=== PATIENT | female | born 1980 | race Caucasian/White ===

== ENCOUNTER 2021-10-15 12:09 | Inpatient (IN) | payer OTHER ==
[2021-10-15] MEDS ORDERED: MENTHOL/PHENOL 1 EACH UD MM PRN (12:34)
[2021-10-15] MEDS ORDERED: IBUPROFEN 400 MG TABLET (FP) PO PRN (12:34)
[2021-10-15] MEDS ORDERED: BISMUTH SUBSALICYLATE 262 MG/15 ML BTL PO PRN (12:34)
[2021-10-15] MEDS ORDERED: NICOTINE 10 MG CARTRIDGE (INHALER) IH PRN (12:34)
[2021-10-15] MEDS ORDERED: ONDANSETRON *ODT* 4 MG TABLET SL PRN (12:34)
[2021-10-15] MEDS ORDERED: ACETAMINOPHEN 325 MG TABLET (FP) PO PRN ×2 (12:34)
[2021-10-15] MEDS ORDERED: MAGNESIUM CITRATE 300 ML BOTTLE PO PRN (12:34)
[2021-10-15] MEDS ORDERED: MAGNESIUM HYDROX 2400MG/30ML ORAL SUSPENSION 30 ML CUP PO PRN (12:34)
[2021-10-15] MEDS ORDERED: METHOCARBAMOL 500 MG TABLET PO PRN (12:34)
[2021-10-15 12:42] VITALS: BMI 20.2
[2021-10-15] MEDS: PRENATAL VITAMINS W/ FOLIC ACID TABLET (FP) PO SCH (15:28)
[2021-10-15] MEDS: NICOTINE 14 MG/24 HOURS TOPICAL PATCH TD SCH (15:28)
[2021-10-15] MEDS: hydrOXYzine PAMOATE 25 MG CAPSULE (FP) PO SCH ×3 (15:29→22:53)
[2021-10-15] MEDS: ALBUTEROL SO4 HFA INHALER IH SCH ×2 (15:29→22:53)
[2021-10-15 18:01] LABS: BLOOD UREA NITROGEN 15.4 mg/dL (7-18); CALCIUM 8.8 mg/dL (8.5-10.1)
[2021-10-15 18:02] LABS: ALBUMIN 3.4 g/dl (3.4-5.0)
[2021-10-15 18:06] LABS: BILIRUBIN,TOTAL 0.3 mg/dL (0.2-1); TOT PROT 6.9 g/dl (6.4-8.2)
[2021-10-15 18:07] LABS: HEMATOCRIT 30.8 % (32.4-45.2); HEMOGLOBIN 9.9 GM/dL (10.7-15.3); MCH 25.2 pg (25.7-33.7); MCHC 32.1 g/dl (32.0-36.0); MEAN CELL VOLUME 78.5 fl (80-96); MEAN PLT VOLUME 7.6 fl (7.5-11.1); PLATELET COUNT 332 10^3/uL (134-434); RBC 3.92 M/mm3 (3.60-5.2); RDW 14.9 % (11.6-15.6); WHITE BLOOD COUNT 3.7 K/mm3 (4.0-10.0)
[2021-10-15] MEDS: THIAMINE HCL 100 MG TABLET (FP) PO SCH (22:53)
[2021-10-15] MEDS: MELATONIN 5 MG TABLETS PO SCH (22:53)
[2021-10-16] MEDS: hydrOXYzine PAMOATE 25 MG CAPSULE (FP) PO SCH ×3 (07:04→14:56)
[2021-10-16] MEDS: ALBUTEROL SO4 HFA INHALER IH SCH ×3 (07:04→21:08)
[2021-10-16] MEDS: PRENATAL VITAMINS W/ FOLIC ACID TABLET (FP) PO SCH (10:13)
[2021-10-16] MEDS: NICOTINE 14 MG/24 HOURS TOPICAL PATCH TD SCH (10:14)
[2021-10-16] MEDS ORDERED: hydrOXYzine PAMOATE 25 MG CAPSULE (FP) PO PRN (15:29)
[2021-10-16] MEDS: MELATONIN 5 MG TABLETS PO SCH (21:07)
[2021-10-16] MEDS: THIAMINE HCL 100 MG TABLET (FP) PO SCH (21:07)
[2021-10-17] MEDS: ALBUTEROL SO4 HFA INHALER IH SCH (06:27)
[2021-10-17] MEDS: PRENATAL VITAMINS W/ FOLIC ACID TABLET (FP) PO SCH (10:25)
[2021-10-17] MEDS: NICOTINE 14 MG/24 HOURS TOPICAL PATCH TD SCH (10:25)
[2021-10-17] MEDS: SERTRALINE HCL 50 MG TABLET (FP) PO SCH (11:44)
[2021-10-17] MEDS: QUEtiapine FUMARATE 50 MG TABLET PO SCH ×2 (11:44→21:23)
[2021-10-17] MEDS: MELATONIN 5 MG TABLETS PO SCH (21:22)
[2021-10-17] MEDS: THIAMINE HCL 100 MG TABLET (FP) PO SCH (21:23)
[2021-10-18] MEDS: ALBUTEROL SO4 HFA INHALER IH PRN (06:38)
[2021-10-18] MEDS: QUEtiapine FUMARATE 50 MG TABLET PO SCH ×2 (10:11→21:03)
[2021-10-18] MEDS: NICOTINE 14 MG/24 HOURS TOPICAL PATCH TD SCH (10:11)
[2021-10-18] MEDS: SERTRALINE HCL 50 MG TABLET (FP) PO SCH (10:11)
[2021-10-18] MEDS: PRENATAL VITAMINS W/ FOLIC ACID TABLET (FP) PO SCH (10:11)
[2021-10-18] MEDS: FERROUS SO4 325 MG TABLET (FP) PO SCH (16:49)
[2021-10-18] MEDS: THIAMINE HCL 100 MG TABLET (FP) PO SCH (21:03)
[2021-10-18] MEDS: MELATONIN 5 MG TABLETS PO SCH (21:03)
[2021-10-19] MEDS: ALBUTEROL SO4 HFA INHALER IH PRN (04:35)
[2021-10-19] MEDS: FERROUS SO4 325 MG TABLET (FP) PO SCH ×2 (07:10→17:24)
[2021-10-19] MEDS: QUEtiapine FUMARATE 50 MG TABLET PO SCH ×2 (09:53→21:14)
[2021-10-19] MEDS: PRENATAL VITAMINS W/ FOLIC ACID TABLET (FP) PO SCH (09:53)
[2021-10-19] MEDS: NICOTINE 14 MG/24 HOURS TOPICAL PATCH TD SCH (09:53)
[2021-10-19] MEDS: SERTRALINE HCL 50 MG TABLET (FP) PO SCH (09:53)
[2021-10-19] MEDS: MAG HYDROX/AL HYDROX/SIMETH 30 ML UNIT-DOSE CUP PO PRN (19:53)
[2021-10-19] MEDS: MELATONIN 5 MG TABLETS PO SCH (21:14)
[2021-10-19] MEDS: THIAMINE HCL 100 MG TABLET (FP) PO SCH (21:14)
[2021-10-20] MEDS: FERROUS SO4 325 MG TABLET (FP) PO SCH ×2 (07:09→17:15)
[2021-10-20] MEDS: PRENATAL VITAMINS W/ FOLIC ACID TABLET (FP) PO SCH (10:28)
[2021-10-20] MEDS: QUEtiapine FUMARATE 50 MG TABLET PO SCH ×2 (10:29→21:17)
[2021-10-20] MEDS: ALBUTEROL SO4 HFA INHALER IH PRN (10:29)
[2021-10-20] MEDS: SERTRALINE HCL 50 MG TABLET (FP) PO SCH (10:29)
[2021-10-20] MEDS: NICOTINE 14 MG/24 HOURS TOPICAL PATCH TD SCH (10:30)
[2021-10-20] MEDS: MAG HYDROX/AL HYDROX/SIMETH 30 ML UNIT-DOSE CUP PO PRN (18:33)
[2021-10-20] MEDS: MELATONIN 5 MG TABLETS PO SCH (21:17)
[2021-10-20] MEDS: THIAMINE HCL 100 MG TABLET (FP) PO SCH (21:17)
[2021-10-21] MEDS: FERROUS SO4 325 MG TABLET (FP) PO SCH ×2 (07:29→17:03)
[2021-10-21] MEDS: QUEtiapine FUMARATE 50 MG TABLET PO SCH ×2 (09:38→21:15)
[2021-10-21] MEDS: SERTRALINE HCL 50 MG TABLET (FP) PO SCH (09:38)
[2021-10-21] MEDS: PRENATAL VITAMINS W/ FOLIC ACID TABLET (FP) PO SCH (09:38)
[2021-10-21] MEDS: NICOTINE 14 MG/24 HOURS TOPICAL PATCH TD SCH (09:48)
[2021-10-21] MEDS: AMOX TR/POT CLAV 875MG/125MG TABLETS (FP) PO SCH (17:03)
[2021-10-21] MEDS: THIAMINE HCL 100 MG TABLET (FP) PO SCH (21:15)
[2021-10-21] MEDS: MELATONIN 5 MG TABLETS PO SCH (21:15)
[2021-10-22] MEDS: AMOX TR/POT CLAV 875MG/125MG TABLETS (FP) PO SCH ×2 (07:29→17:17)
[2021-10-22] MEDS: FERROUS SO4 325 MG TABLET (FP) PO SCH ×2 (07:29→17:18)
[2021-10-22] MEDS: NICOTINE 14 MG/24 HOURS TOPICAL PATCH TD SCH (10:31)
[2021-10-22] MEDS: PRENATAL VITAMINS W/ FOLIC ACID TABLET (FP) PO SCH (10:31)
[2021-10-22] MEDS: SERTRALINE HCL 50 MG TABLET (FP) PO SCH (10:32)
[2021-10-22] MEDS: QUEtiapine FUMARATE 50 MG TABLET PO SCH ×2 (10:32→21:24)
[2021-10-22] MEDS: MAG HYDROX/AL HYDROX/SIMETH 30 ML UNIT-DOSE CUP PO PRN (12:46)
[2021-10-22] MEDS: THIAMINE HCL 100 MG TABLET (FP) PO SCH (21:24)
[2021-10-22] MEDS: MELATONIN 5 MG TABLETS PO SCH (21:24)
[2021-10-22] MEDS ORDERED: hydrOXYzine PAMOATE 25 MG CAPSULE (FP) PO ONE (21:50)
[2021-10-23] MEDS: FERROUS SO4 325 MG TABLET (FP) PO SCH ×2 (07:58→17:07)
[2021-10-23] MEDS: AMOX TR/POT CLAV 875MG/125MG TABLETS (FP) PO SCH ×2 (07:58→17:07)
[2021-10-23] MEDS: QUEtiapine FUMARATE 50 MG TABLET PO SCH ×2 (10:29→21:36)
[2021-10-23] MEDS: PRENATAL VITAMINS W/ FOLIC ACID TABLET (FP) PO SCH (10:29)
[2021-10-23] MEDS: SERTRALINE HCL 50 MG TABLET (FP) PO SCH (10:29)
[2021-10-23] MEDS: NICOTINE 14 MG/24 HOURS TOPICAL PATCH TD SCH (10:30)
[2021-10-23] MEDS: hydrOXYzine PAMOATE 25 MG CAPSULE (FP) PO PRN ×2 (17:08→21:36)
[2021-10-23] MEDS: THIAMINE HCL 100 MG TABLET (FP) PO SCH (21:36)
[2021-10-23] MEDS: MELATONIN 5 MG TABLETS PO SCH (21:36)
[2021-10-24] MEDS: FERROUS SO4 325 MG TABLET (FP) PO SCH ×2 (08:06→18:06)
[2021-10-24] MEDS: AMOX TR/POT CLAV 875MG/125MG TABLETS (FP) PO SCH ×2 (08:06→18:06)
[2021-10-24] MEDS: SERTRALINE HCL 50 MG TABLET (FP) PO SCH (10:50)
[2021-10-24] MEDS: PRENATAL VITAMINS W/ FOLIC ACID TABLET (FP) PO SCH (10:50)
[2021-10-24] MEDS: QUEtiapine FUMARATE 50 MG TABLET PO SCH ×2 (10:50→21:25)
[2021-10-24] MEDS: NICOTINE 14 MG/24 HOURS TOPICAL PATCH TD SCH (10:50)
[2021-10-24] MEDS: hydrOXYzine PAMOATE 25 MG CAPSULE (FP) PO PRN ×2 (18:06→21:26)
[2021-10-24] MEDS: MAG HYDROX/AL HYDROX/SIMETH 30 ML UNIT-DOSE CUP PO PRN (18:45)
[2021-10-24] MEDS: THIAMINE HCL 100 MG TABLET (FP) PO SCH (21:25)
[2021-10-24] MEDS: MELATONIN 5 MG TABLETS PO SCH (21:25)
[2021-10-25] MEDS: FERROUS SO4 325 MG TABLET (FP) PO SCH (07:01)
[2021-10-25] MEDS: AMOX TR/POT CLAV 875MG/125MG TABLETS (FP) PO SCH (07:01)
[2021-10-25 07:58] VITALS: BP 111/61; PULSE 86; TEMP 96.2
[2021-10-25] MEDS: PRENATAL VITAMINS W/ FOLIC ACID TABLET (FP) PO SCH (10:44)
[2021-10-25] MEDS: hydrOXYzine PAMOATE 25 MG CAPSULE (FP) PO PRN (10:44)
[2021-10-25] MEDS: SERTRALINE HCL 50 MG TABLET (FP) PO SCH (10:44)
[2021-10-25] MEDS: NICOTINE 14 MG/24 HOURS TOPICAL PATCH TD SCH (10:44)
[2021-10-25] MEDS: QUEtiapine FUMARATE 50 MG TABLET PO SCH (10:44)
== END 2021-10-25 13:20 | disposition home or self-care (01) | DRG 895 ==
LOC: YASAS 12:09 → Y3N 13:29 → Y3W 10-16 14:46 → Y5N 10-21 12:50
PROVIDERS: ADMIT Allergy & Immunology; ATTEND Allergy & Immunology
PROC: HZ2ZZZZ Detoxification Services for Substance Abuse Treatment (ICD-10-PCS; 2021-10-15)
PROC: HZ42ZZZ Group Counseling for Substance Abuse Treatment, Cognitive-Behavioral (ICD-10-PCS; principal; 2021-10-16)
DX: F10.20 Alcohol dependence, uncomplicated (principal); F14.20 Cocaine dependence, uncomplicated; F16.20 Hallucinogen dependence, uncomplicated; L03.211 Cellulitis of face; F12.20 Cannabis dependence, uncomplicated; F17.210 Nicotine dependence, cigarettes, uncomplicated; F31.9 Bipolar disorder, unspecified; F41.9 Anxiety disorder, unspecified; F19.24 Other psychoactive substance dependence with psychoactive substance-induced mood disorder; G47.00 Insomnia, unspecified; J45.909 Unspecified asthma, uncomplicated; D64.9 Anemia, unspecified; R63.4 Abnormal weight loss; Z68.20 Body mass index [BMI] 20.0-20.9, adult
CPT/HCPCS: 36415; 80053; 82962; 85027; 86780; 93005; 93010; C9803; U0003; U0005

== ENCOUNTER 2021-11-26 15:14 | Inpatient (IN) | payer OTHER ==
[2021-11-26] MEDS ORDERED: MAGNESIUM HYDROX 2400MG/30ML ORAL SUSPENSION 30 ML CUP PO PRN (18:24)
[2021-11-26] MEDS ORDERED: ONDANSETRON *ODT* 4 MG TABLET SL PRN (18:24)
[2021-11-26] MEDS ORDERED: MENTHOL/PHENOL 1 EACH UD MM PRN (18:24)
[2021-11-26] MEDS ORDERED: MAGNESIUM CITRATE 300 ML BOTTLE PO PRN (18:24)
[2021-11-26] MEDS ORDERED: BISMUTH SUBSALICYLATE 524 MG/30 ML PO PRN (18:24)
[2021-11-26] MEDS ORDERED: ACETAMINOPHEN 325 MG TABLET (FP) PO PRN (18:24)
[2021-11-26] MEDS ORDERED: NICOTINE POLACRILEX 2 MG GUM BUC PRN (18:24)
[2021-11-26] MEDS ORDERED: IBUPROFEN 400 MG TABLET (FP) PO PRN (18:24)
[2021-11-26] MEDS ORDERED: LOPERAMIDE HCL 2 MG CAPSULE PO PRN (18:24)
[2021-11-26 18:42] VITALS: BMI 22.2
[2021-11-26] MEDS: hydrOXYzine PAMOATE 25 MG CAPSULE (FP) PO PRN (23:05)
[2021-11-26] MEDS: MELATONIN 5 MG TABLETS PO PRN (23:05)
[2021-11-26] MEDS: THIAMINE HCL 100 MG TABLET (FP) PO SCH (23:05)
[2021-11-26] MEDS: METHOCARBAMOL 500 MG TABLET PO PRN (23:05)
[2021-11-26] MEDS: BACITRACIN 0.9 GM PACKET TP SCH (23:06)
[2021-11-27] MEDS: PRENATAL VITAMINS W/ FOLIC ACID TABLET (FP) PO SCH (10:26)
[2021-11-27] MEDS: BACITRACIN 0.9 GM PACKET TP SCH ×2 (10:38→22:38)
[2021-11-27 10:43] LABS: HEMATOCRIT 35.3 % (32.4-45.2); HEMOGLOBIN 11.6 GM/dL (10.7-15.3); MCH 25.3 pg (25.7-33.7); MCHC 32.9 g/dl (32.0-36.0); MEAN CELL VOLUME 76.8 fl (80-96); MEAN PLT VOLUME 7.2 fl (7.5-11.1); PLATELET COUNT 337 10^3/uL (134-434); RDW 17.8 % (11.6-15.6); WHITE BLOOD COUNT 4.4 K/mm3 (4.0-10.0)
[2021-11-27 11:06] LABS: ALBUMIN 3.4 g/dl (3.4-5.0); BLOOD UREA NITROGEN 11.2 mg/dL (7-18); CALCIUM 8.9 mg/dL (8.5-10.1)
[2021-11-27 11:08] LABS: BILIRUBIN,TOTAL 0.5 mg/dL (0.2-1); CREATININE 0.8 mg/dL (0.55-1.3)
[2021-11-27] MEDS ORDERED: chlordiazePOXIDE HCL 25 MG CAPSULE PO ONE (12:52)
[2021-11-27] MEDS ORDERED: chlordiazePOXIDE HCL 25 MG CAPSULE PO PRN (12:52)
[2021-11-27] MEDS ORDERED: QUEtiapine FUMARATE 25 MG TABLET ONE (13:33)
[2021-11-27] MEDS: SERTRALINE HCL 50 MG TABLET (FP) PO SCH (14:13)
[2021-11-27] MEDS: QUEtiapine FUMARATE 50 MG TABLET PO SCH ×2 (14:13→22:38)
[2021-11-27] MEDS: chlordiazePOXIDE HCL 25 MG CAPSULE PO SCH ×2 (18:36→22:39)
[2021-11-27] MEDS: ACETAMINOPHEN 325 MG TABLET (FP) PO PRN (18:37)
[2021-11-27] MEDS: THIAMINE HCL 100 MG TABLET (FP) PO SCH (22:40)
[2021-11-28] MEDS: chlordiazePOXIDE HCL 25 MG CAPSULE PO SCH ×4 (06:27→23:03)
[2021-11-28] MEDS: BACITRACIN 0.9 GM PACKET TP SCH ×2 (10:43→23:02)
[2021-11-28] MEDS: hydrOXYzine PAMOATE 25 MG CAPSULE (FP) PO PRN (10:44)
[2021-11-28] MEDS: METHOCARBAMOL 500 MG TABLET PO PRN (10:44)
[2021-11-28] MEDS: QUEtiapine FUMARATE 50 MG TABLET PO SCH ×2 (10:45→23:01)
[2021-11-28] MEDS: SERTRALINE HCL 50 MG TABLET (FP) PO SCH (10:45)
[2021-11-28] MEDS: PRENATAL VITAMINS W/ FOLIC ACID TABLET (FP) PO SCH (10:45)
[2021-11-28] MEDS: ACETAMINOPHEN 325 MG TABLET (FP) PO PRN (10:46)
[2021-11-28] MEDS: THIAMINE HCL 100 MG TABLET (FP) PO SCH (23:02)
[2021-11-28] MEDS: ALBUTEROL SO4 HFA INHALER IH PRN (23:05)
[2021-11-29] MEDS: chlordiazePOXIDE HCL 25 MG CAPSULE PO SCH ×4 (05:22→22:18)
[2021-11-29] MEDS: PRENATAL VITAMINS W/ FOLIC ACID TABLET (FP) PO SCH (10:37)
[2021-11-29] MEDS: BACITRACIN 0.9 GM PACKET TP SCH ×2 (10:37→22:17)
[2021-11-29] MEDS: SERTRALINE HCL 50 MG TABLET (FP) PO SCH (10:37)
[2021-11-29] MEDS: hydrOXYzine PAMOATE 25 MG CAPSULE (FP) PO PRN ×2 (10:37→10:56)
[2021-11-29] MEDS: METHOCARBAMOL 500 MG TABLET PO PRN (10:37)
[2021-11-29] MEDS: QUEtiapine FUMARATE 50 MG TABLET PO SCH ×2 (10:38→22:17)
[2021-11-29 14:08] LABS: SARS-CoV-2 NAA Not Detected (Not Detected)
[2021-11-29] MEDS: MAG HYDROX/AL HYDROX/SIMETH 30 ML UNIT-DOSE CUP PO PRN (18:29)
[2021-11-29] MEDS: THIAMINE HCL 100 MG TABLET (FP) PO SCH (22:17)
[2021-11-29] MEDS: MELATONIN 5 MG TABLETS PO PRN (22:18)
[2021-11-30] MEDS ORDERED: chlordiazePOXIDE HCL 10 MG CAPSULE PO PRN
[2021-11-30] MEDS: MAG HYDROX/AL HYDROX/SIMETH 30 ML UNIT-DOSE CUP PO PRN ×2 (01:29→18:56)
[2021-11-30] MEDS: chlordiazePOXIDE HCL 10 MG CAPSULE PO SCH ×4 (06:39→22:18)
[2021-11-30] MEDS: METHOCARBAMOL 500 MG TABLET PO PRN (10:10)
[2021-11-30] MEDS: PRENATAL VITAMINS W/ FOLIC ACID TABLET (FP) PO SCH (10:10)
[2021-11-30] MEDS: BACITRACIN 0.9 GM PACKET TP SCH ×2 (10:10→22:18)
[2021-11-30] MEDS: QUEtiapine FUMARATE 50 MG TABLET PO SCH ×2 (10:10→22:18)
[2021-11-30] MEDS: SERTRALINE HCL 50 MG TABLET (FP) PO SCH (10:10)
[2021-11-30] MEDS: THIAMINE HCL 100 MG TABLET (FP) PO SCH (22:18)
[2021-11-30] MEDS: MELATONIN 5 MG TABLETS PO PRN (22:19)
[2021-12-01] MEDS: MAG HYDROX/AL HYDROX/SIMETH 30 ML UNIT-DOSE CUP PO PRN (03:26)
[2021-12-01] MEDS ORDERED: chlordiazePOXIDE HCL 10 MG CAPSULE PO SCH (05:00)
[2021-12-01 09:51] VITALS: BP 99/51; PULSE 79; TEMP 96.9
[2021-12-01] MEDS: METHOCARBAMOL 500 MG TABLET PO PRN (10:06)
[2021-12-01] MEDS: SERTRALINE HCL 50 MG TABLET (FP) PO SCH (10:06)
[2021-12-01] MEDS: PRENATAL VITAMINS W/ FOLIC ACID TABLET (FP) PO SCH (10:06)
[2021-12-01] MEDS: QUEtiapine FUMARATE 50 MG TABLET PO SCH (10:06)
[2021-12-01] MEDS: BACITRACIN 0.9 GM PACKET TP SCH (10:06)
[2021-12-01] MEDS: hydrOXYzine PAMOATE 25 MG CAPSULE (FP) PO PRN (10:07)
[2021-12-01] MEDS: ALBUTEROL SO4 HFA INHALER IH PRN (10:08)
[2021-12-02] MEDS ORDERED: chlordiazePOXIDE HCL 10 MG CAPSULE PO ONE (05:00)
== END 2021-12-01 11:57 | disposition home or self-care (01) | DRG 897 ==
LOC: YASAS 15:14 → Y6N 22:19
PROVIDERS: ADMIT Allergy & Immunology; ATTEND Allergy & Immunology
PROC: HZ2ZZZZ Detoxification Services for Substance Abuse Treatment (ICD-10-PCS; principal; 2021-11-26)
DX: F10.230 Alcohol dependence with withdrawal, uncomplicated (principal); F14.20 Cocaine dependence, uncomplicated; F19.282 Other psychoactive substance dependence with psychoactive substance-induced sleep disorder; F16.10 Hallucinogen abuse, uncomplicated; F12.20 Cannabis dependence, uncomplicated; F17.213 Nicotine dependence, cigarettes, with withdrawal; F31.9 Bipolar disorder, unspecified; F41.8 Other specified anxiety disorders; F19.24 Other psychoactive substance dependence with psychoactive substance-induced mood disorder; J45.909 Unspecified asthma, uncomplicated; K21.9 Gastro-esophageal reflux disease without esophagitis; Z86.2 Personal history of diseases of the blood and blood-forming organs and certain disorders involving the immune mechanism; Z91.013 Allergy to seafood
CPT/HCPCS: 36415; 80053; 81025; 85027; 86780; C9803; Q0162; U0003; U0005

== ENCOUNTER 2022-02-03 14:48 | Inpatient (IN) | payer OTHER ==
[2022-02-03 15:26] VITALS: BMI 22.6
[2022-02-03] MEDS ORDERED: LORazepam 2 MG TABLET PO ONE (18:53)
[2022-02-03] MEDS ORDERED: BISMUTH SUBSALICYLATE 524 MG/30 ML PO PRN (18:53)
[2022-02-03] MEDS ORDERED: MAGNESIUM CITRATE 300 ML BOTTLE PO PRN (18:53)
[2022-02-03] MEDS ORDERED: NICOTINE 10 MG CARTRIDGE (INHALER) IH PRN (18:53)
[2022-02-03] MEDS ORDERED: MAGNESIUM HYDROX 2400MG/30ML ORAL SUSPENSION 30 ML CUP PO PRN (18:53)
[2022-02-03] MEDS ORDERED: IBUPROFEN 400 MG TABLET (FP) PO PRN (18:53)
[2022-02-03] MEDS ORDERED: LORazepam 1 MG TABLET PO PRN (18:53)
[2022-02-03] MEDS ORDERED: MAG HYDROX/AL HYDROX/SIMETH 30 ML UNIT-DOSE CUP PO PRN (18:53)
[2022-02-03] MEDS ORDERED: BENZOCAINE/MENTHOL (CHLORASEPTIC ) LOZENGE MM PRN (18:53)
[2022-02-03] MEDS ORDERED: ONDANSETRON *ODT* 4 MG TABLET SL PRN (18:53)
[2022-02-03] MEDS ORDERED: DICYCLOMINE HCL 10 MG CAPSULE PO PRN (18:53)
[2022-02-03] MEDS ORDERED: ACETAMINOPHEN 325 MG TABLET (FP) PO PRN ×2 (18:53)
[2022-02-03] MEDS ORDERED: LOPERAMIDE HCL 2 MG CAPSULE PO PRN (18:53)
[2022-02-03] MEDS: PRENATAL VITAMINS W/ FOLIC ACID TABLET (FP) PO SCH (19:16)
[2022-02-03] MEDS: ALBUTEROL SO4 HFA INHALER IH PRN (19:17)
[2022-02-03] MEDS ORDERED: QUEtiapine FUMARATE 50 MG TABLET PO ONE (22:00)
[2022-02-04] MEDS: BUDESONIDE/FORMETEROL FUMARATE 80/4.5 mcg INHALER IH SCH ×2 (00:36→13:21)
[2022-02-04] MEDS: MELATONIN 5 MG TABLETS PO SCH ×2 (00:36→22:55)
[2022-02-04] MEDS: LORazepam 2 MG TABLET PO SCH ×5 (00:37→22:55)
[2022-02-04] MEDS: THIAMINE HCL 100 MG TABLET (FP) PO SCH ×2 (00:37→22:55)
[2022-02-04 10:04] LABS: HEMATOCRIT 30.7 % (32.4-45.2); HEMOGLOBIN 9.9 GM/dL (10.7-15.3); MCH 25.2 pg (25.7-33.7); MCHC 32.3 g/dl (32.0-36.0); MEAN CELL VOLUME 78.2 fl (80-96); MEAN PLT VOLUME 7.4 fl (7.5-11.1); PLATELET COUNT 268 10^3/uL (134-434); RBC 3.93 M/mm3 (3.60-5.2); RDW 17.5 % (11.6-15.6); WHITE BLOOD COUNT 4.4 K/mm3 (4.0-10.0)
[2022-02-04] MEDS: ALBUTEROL SO4 HFA INHALER IH PRN (10:28)
[2022-02-04] MEDS: PRENATAL VITAMINS W/ FOLIC ACID TABLET (FP) PO SCH (10:28)
[2022-02-04] MEDS: METHOCARBAMOL 500 MG TABLET PO PRN ×2 (10:28→22:55)
[2022-02-04 10:35] LABS: ALBUMIN 2.9 g/dl (3.4-5.0)
[2022-02-04 10:36] LABS: BILIRUBIN,TOTAL 0.2 mg/dL (0.2-1); TOT PROT 6.3 g/dl (6.4-8.2)
[2022-02-04 10:37] LABS: CREATININE 0.7 mg/dL (0.55-1.3)
[2022-02-04 10:39] LABS: BLOOD UREA NITROGEN 13.8 mg/dL (7-18); CALCIUM 8.4 mg/dL (8.5-10.1)
[2022-02-04 11:44] LABS: HIV INTERPRETATION NEGATIVE (NEGATIVE)
[2022-02-05] MEDS: LORazepam 1 MG TABLET PO SCH ×2 (05:58→10:14)
[2022-02-05 09:42] VITALS: BP 123/92; PULSE 110; TEMP 98.8
[2022-02-05 10:07] LABS: SARS-CoV-2 NAA Not Detected (Not Detected)
[2022-02-05] MEDS: BUDESONIDE/FORMETEROL FUMARATE 80/4.5 mcg INHALER IH SCH (10:13)
[2022-02-05] MEDS: PRENATAL VITAMINS W/ FOLIC ACID TABLET (FP) PO SCH (10:13)
[2022-02-05] MEDS: ALBUTEROL SO4 HFA INHALER IH PRN (10:14)
[2022-02-05 11:14] LABS: IRON SERUM 29 ug/dL (50-175)
[2022-02-05 11:15] LABS: TOTAL IRON BINDING CAPACITY 387 ug/dL (250-450)
[2022-02-06] MEDS ORDERED: LORazepam 0.5 MG TABLET PO PRN
[2022-02-06] MEDS ORDERED: LORazepam 0.5 MG TABLET PO SCH (05:00)
[2022-02-07] MEDS ORDERED: LORazepam 0.5 MG TABLET PO ONE (05:00)
== END 2022-02-05 11:59 | disposition left against medical advice (07) | DRG 894 ==
LOC: YASAS 14:48 → Y6N 18:37
PROVIDERS: ADMIT Allergy & Immunology; ATTEND Surgery
PROC: HZ2ZZZZ Detoxification Services for Substance Abuse Treatment (ICD-10-PCS; principal; 2022-02-03)
DX: F10.230 Alcohol dependence with withdrawal, uncomplicated (principal); F14.20 Cocaine dependence, uncomplicated; F12.20 Cannabis dependence, uncomplicated; F17.213 Nicotine dependence, cigarettes, with withdrawal; F41.8 Other specified anxiety disorders; F32.A Depression, unspecified; D50.9 Iron deficiency anemia, unspecified; J45.909 Unspecified asthma, uncomplicated; K21.9 Gastro-esophageal reflux disease without esophagitis; Z28.310 Unvaccinated for COVID-19
CPT/HCPCS: 36415; 80053; 81025; 82607; 83540; 83550; 85027; 86780; 87389; C9803-CS; U0003; U0005

== ENCOUNTER 2022-08-13 16:43 | Inpatient (IN) | payer OTHER ==
[2022-08-13 17:30] VITALS: BMI 23.2
[2022-08-13] MEDS ORDERED: BENZOCAINE/MENTHOL (CHLORASEPTIC ) LOZENGE MM PRN (17:51)
[2022-08-13] MEDS ORDERED: IBUPROFEN 600 MG TABLET (FP) PO PRN (17:51)
[2022-08-13] MEDS ORDERED: IBUPROFEN 400 MG TABLET (FP) PO PRN (17:51)
[2022-08-13] MEDS ORDERED: BISMUTH SUBSALICYLATE 524 MG/30 ML PO PRN (17:51)
[2022-08-13] MEDS ORDERED: MAGNESIUM HYDROX 2400MG/30ML ORAL SUSPENSION 30 ML CUP PO PRN (17:51)
[2022-08-13] MEDS ORDERED: MAG HYDROX/AL HYDROX/SIMETH 30 ML UNIT-DOSE CUP PO PRN (17:51)
[2022-08-13] MEDS ORDERED: chlordiazePOXIDE HCL 25 MG CAPSULE PO PRN (17:51)
[2022-08-13] MEDS ORDERED: POLYETHYLENE GLYCOL (HEALTHYLAX) 3350 17 GM PACKET PO PRN (17:51)
[2022-08-13] MEDS ORDERED: ACETAMINOPHEN 325 MG TABLET (FP) PO PRN ×2 (17:51)
[2022-08-13] MEDS ORDERED: ONDANSETRON *ODT* 4 MG TABLET SL PRN (17:51)
[2022-08-13] MEDS ORDERED: NICOTINE 10 MG CARTRIDGE (INHALER) IH PRN (17:51)
[2022-08-13] MEDS ORDERED: LOPERAMIDE HCL 2 MG CAPSULE PO PRN (17:51)
[2022-08-13] MEDS ORDERED: DICYCLOMINE HCL 10 MG CAPSULE PO PRN (17:51)
[2022-08-13] MEDS: THIAMINE HCL 100 MG TABLET (FP) PO SCH (22:25)
[2022-08-13] MEDS: hydrOXYzine PAMOATE 25 MG CAPSULE (FP) PO PRN (22:25)
[2022-08-13] MEDS: MELATONIN 5 MG TABLETS PO SCH (22:25)
[2022-08-13] MEDS: METHOCARBAMOL 500 MG TABLET PO PRN (22:25)
[2022-08-13] MEDS: chlordiazePOXIDE HCL 25 MG CAPSULE PO SCH (22:25)
[2022-08-14] MEDS: chlordiazePOXIDE HCL 25 MG CAPSULE PO SCH ×4 (05:44→22:52)
[2022-08-14] MEDS ORDERED: ALBUTEROL SO4 HFA INHALER IH PRN (08:58)
[2022-08-14 10:19] LABS: HEMATOCRIT 28.4 % (32.4-45.2); MCHC 31.7 g/dl (32.0-36.0); MEAN CELL VOLUME 72.5 fl (80-96); MEAN PLT VOLUME 7.1 fl (7.5-11.1); PLATELET COUNT 339 10^3/uL (134-434); RBC 3.92 M/mm3 (3.60-5.2); RDW 16.8 % (11.6-15.6); WHITE BLOOD COUNT 4.7 K/mm3 (4.0-10.0)
[2022-08-14] MEDS: QUEtiapine FUMARATE 50 MG TABLET PO SCH ×2 (10:39→22:50)
[2022-08-14] MEDS: SERTRALINE HCL 50 MG TABLET (FP) PO SCH (10:39)
[2022-08-14] MEDS: METHOCARBAMOL 500 MG TABLET PO PRN ×2 (10:40→22:50)
[2022-08-14] MEDS: PRENATAL VITAMINS W/ FOLIC ACID TABLET (FP) PO SCH (10:40)
[2022-08-14] MEDS: BUDESONIDE/FORMETEROL FUMARATE 80/4.5 mcg INHALER IH SCH ×2 (10:44→22:50)
[2022-08-14 10:53] LABS: CALCIUM 8.7 mg/dL (8.5-10.1)
[2022-08-14 10:57] LABS: CREATININE 0.8 mg/dL (0.55-1.3)
[2022-08-14 10:58] LABS: BILIRUBIN,TOTAL 0.6 mg/dL (0.2-1); TOT PROT 6.4 g/dl (6.4-8.2)
[2022-08-14] MEDS: MELATONIN 5 MG TABLETS PO SCH (22:49)
[2022-08-14] MEDS: THIAMINE HCL 100 MG TABLET (FP) PO SCH (22:49)
[2022-08-15] MEDS: chlordiazePOXIDE HCL 25 MG CAPSULE PO SCH ×4 (05:59→22:28)
[2022-08-15] MEDS: PRENATAL VITAMINS W/ FOLIC ACID TABLET (FP) PO SCH (10:33)
[2022-08-15] MEDS: QUEtiapine FUMARATE 50 MG TABLET PO SCH ×2 (10:33→22:26)
[2022-08-15] MEDS: SERTRALINE HCL 50 MG TABLET (FP) PO SCH (10:33)
[2022-08-15] MEDS: BUDESONIDE/FORMETEROL FUMARATE 80/4.5 mcg INHALER IH SCH ×2 (10:33→22:25)
[2022-08-15] MEDS: THIAMINE HCL 100 MG TABLET (FP) PO SCH (22:25)
[2022-08-15] MEDS: MELATONIN 5 MG TABLETS PO SCH (22:28)
[2022-08-16] MEDS ORDERED: chlordiazePOXIDE HCL 10 MG CAPSULE PO PRN
[2022-08-16] MEDS: chlordiazePOXIDE HCL 10 MG CAPSULE PO SCH ×4 (05:40→22:30)
[2022-08-16] MEDS: SERTRALINE HCL 50 MG TABLET (FP) PO SCH (10:08)
[2022-08-16] MEDS: BUDESONIDE/FORMETEROL FUMARATE 80/4.5 mcg INHALER IH SCH ×2 (10:08→22:36)
[2022-08-16] MEDS: QUEtiapine FUMARATE 50 MG TABLET PO SCH ×2 (10:08→22:36)
[2022-08-16] MEDS: PRENATAL VITAMINS W/ FOLIC ACID TABLET (FP) PO SCH (10:08)
[2022-08-16] MEDS: hydrOXYzine PAMOATE 25 MG CAPSULE (FP) PO PRN (17:30)
[2022-08-16] MEDS: METHOCARBAMOL 500 MG TABLET PO PRN ×2 (17:31→22:38)
[2022-08-16] MEDS: MELATONIN 5 MG TABLETS PO SCH (22:35)
[2022-08-16] MEDS: THIAMINE HCL 100 MG TABLET (FP) PO SCH (22:36)
[2022-08-17] MEDS: chlordiazePOXIDE HCL 10 MG CAPSULE PO SCH ×2 (05:35→17:45)
[2022-08-17] MEDS: QUEtiapine FUMARATE 50 MG TABLET PO SCH ×2 (09:32→22:24)
[2022-08-17] MEDS: BUDESONIDE/FORMETEROL FUMARATE 80/4.5 mcg INHALER IH SCH ×2 (09:32→22:24)
[2022-08-17] MEDS: PRENATAL VITAMINS W/ FOLIC ACID TABLET (FP) PO SCH (09:32)
[2022-08-17] MEDS: SERTRALINE HCL 50 MG TABLET (FP) PO SCH (09:32)
[2022-08-17] MEDS: hydrOXYzine PAMOATE 25 MG CAPSULE (FP) PO PRN ×2 (17:44→22:36)
[2022-08-17] MEDS: MELATONIN 5 MG TABLETS PO SCH (22:23)
[2022-08-17] MEDS: METHOCARBAMOL 500 MG TABLET PO PRN (22:24)
[2022-08-17] MEDS: THIAMINE HCL 100 MG TABLET (FP) PO SCH (22:24)
[2022-08-18] MEDS ORDERED: chlordiazePOXIDE HCL 10 MG CAPSULE PO ONE (05:00)
[2022-08-18] MEDS: PRENATAL VITAMINS W/ FOLIC ACID TABLET (FP) PO SCH (10:14)
[2022-08-18] MEDS: QUEtiapine FUMARATE 50 MG TABLET PO SCH ×2 (10:14→21:42)
[2022-08-18] MEDS: SERTRALINE HCL 50 MG TABLET (FP) PO SCH (10:15)
[2022-08-18] MEDS: BUDESONIDE/FORMETEROL FUMARATE 80/4.5 mcg INHALER IH SCH ×2 (10:15→21:41)
[2022-08-18] MEDS: METHOCARBAMOL 500 MG TABLET PO PRN (21:40)
[2022-08-18] MEDS: MELATONIN 5 MG TABLETS PO SCH (21:40)
[2022-08-18] MEDS: THIAMINE HCL 100 MG TABLET (FP) PO SCH (21:40)
[2022-08-18 22:52] VITALS: RESP 18
[2022-08-19 07:09] VITALS: BP 118/74; PULSE 82; TEMP 98
[2022-08-19] MEDS: SERTRALINE HCL 50 MG TABLET (FP) PO SCH (09:05)
[2022-08-19] MEDS: PRENATAL VITAMINS W/ FOLIC ACID TABLET (FP) PO SCH (09:05)
[2022-08-19] MEDS: QUEtiapine FUMARATE 50 MG TABLET PO SCH (09:05)
[2022-08-19] MEDS: BUDESONIDE/FORMETEROL FUMARATE 80/4.5 mcg INHALER IH SCH (09:06)
[2022-08-19] MEDS ORDERED: FERROUS SO4 325 MG TABLET (FP) PO SCH (11:00)
[2022-08-19 12:12] LABS: HIV INTERPRETATION NEGATIVE (NEGATIVE)
== END 2022-08-19 09:30 | disposition left against medical advice (07) | DRG 894 ==
LOC: YASAS 16:43 → Y6N 18:07 → Y5N 08-18 13:10
PROVIDERS: ADMIT Allergy & Immunology; ATTEND Surgery
PROC: HZ2ZZZZ Detoxification Services for Substance Abuse Treatment (ICD-10-PCS; 2022-08-13)
PROC: HZ42ZZZ Group Counseling for Substance Abuse Treatment, Cognitive-Behavioral (ICD-10-PCS; principal; 2022-08-18)
DX: F10.20 Alcohol dependence, uncomplicated (principal); F14.20 Cocaine dependence, uncomplicated; F19.282 Other psychoactive substance dependence with psychoactive substance-induced sleep disorder; F12.20 Cannabis dependence, uncomplicated; F17.210 Nicotine dependence, cigarettes, uncomplicated; F31.9 Bipolar disorder, unspecified; F19.24 Other psychoactive substance dependence with psychoactive substance-induced mood disorder; F41.8 Other specified anxiety disorders; J45.909 Unspecified asthma, uncomplicated; K21.9 Gastro-esophageal reflux disease without esophagitis; M19.90 Unspecified osteoarthritis, unspecified site; Z28.310 Unvaccinated for COVID-19; Z28.9 Immunization not carried out for unspecified reason
CPT/HCPCS: 36415; 80053; 85027; 86780; 87389; 87811; C9803-CS; U0003; U0005